=== PATIENT | female | born 1945 | race African-American/Black ===

== ENCOUNTER 2018-12-05 05:55 | Inpatient (IN) | payer OTHER ==
[2018-11-29 13:08] VITALS: BMI 28.3
[~2018-12-05 05:55] MED LIST: CEFAZOLIN 2 GM in DEXTROSE 5%-WATER - 50 ML IVPB ONE; GABAPENTIN 300 MG CAPSULE (FP) PO ONE; PANTOPRAZOLE 40 MG TABLET (FP) PO ONE; TRANEXAMIC ACID 1000 MG/10 ML VIAL IVPUSH ONE; oxyCODONE HCL 10 MG SUSTAINED ACTING TABLET PO ONE
[2018-12-05] MEDS ORDERED: SODIUM CHLORIDE 0.9% P/F 10 ML VIAL IJ ONE (06:35)
[2018-12-05] MEDS ORDERED: BUPIVACAINE LIPOSOME/PF (EXPAREL) 266 MG/20 ML VIAL ONE (06:35)
[2018-12-05] MEDS ORDERED: MIDAZOLAM HCL 2 MG/2 ML SINGLE DOSE VIAL ONE (06:35)
[2018-12-05] MEDS ORDERED: ceFAZolin SODIUM 1 GM VIAL ONE ×2 (07:24→08:01)
[2018-12-05] MEDS ORDERED: VANCOMYCIN 1,000 MG VIAL (RESTRICTED TO ID ONLY) ONE (07:24)
--- NOTE | 2018-12-05 07:46 | HP ---
Admitting History and Physical - Admission Chief Complaint: left knee osteoarthritis x years History of Present Illness: 73 year old female presents in regard to their left knee. Long-standing history of left knee osteoarthritis. Patient complains of pain, limited range of motion , difficulty ambulating, and difficulty with activities of daily living. Patient has failed conservative treatment options including PO medications, injections, activity modification, and exercise programs. At this point, patient would like to proceed with surgical intervention-left total knee arthroplasty. History Source: Patient - Past Medical History Cardiovascular: Yes: HTN, Hyperlipdemia Musculoskeletal: Yes: Osteoarthritis - Past Surgical History Additional Past Surgical History: See written history & physical. - Advance Directives Advance Directives: Yes: Health Care Proxy - Smoking History Smoking history: Never smoked Have you smoked in the past 12 months: No - Alcohol/Substance Use Hx Alcohol Use: Yes (OCCASIONALLY) Home Medications - Allergies Allergies/Adverse Reactions: Allergies Allergy/AdvReac Type Severity Reaction Status Date / Time almond Allergy Severe Difficulty Verified 10/11/17 12:05 Breathing cashew nut Allergy Severe Difficulty Verified 10/11/17 12:05 Breathing nut - unspecified Allergy Severe Difficulty Verified 11/29/18 12:54 Breathing peanut Allergy Severe Itching Verified 10/11/17 12:05 promethazine Allergy Severe Difficulty Verified 11/29/18 12:55 Breathing No Known Drug Allergies Allergy Verified 10/11/17 12:05 - Home Medications Home Medications: Ambulatory Orders Cyanocobalamin [Vitamin B12 -] 1,000 mcg PO DAILY 08/02/17 Mv-Mn/C/Glutamin/Lysin/[id number] [Airborne Lozenge] 1 each MM DAILY 08/02/17 traMADol HCL [Ultram] 50 mg PO Q4H PRN 08/02/17 Ascorbate Calcium [Vitamin C] 2 tab PO DAILY 10/11/17 Aspirin Coated [Ecotrin -] 81 mg PO DAILY 10/11/17 Celecoxib [Celebrex] 200 mg PO DAILY PRN 10/11/17 Losartan/Hydrochlorothiazide [Losartan-Hctz 50-12.5 mg Tab] 1 each PO HS [place]-3 Fatty Acids [[place]-3] 2 cap PO BID 10/11/17 Rosuvastatin Calcium [Crestor] 40 mg PO HS 10/11/17 Amlodipine Besylate 10 mg PO HS 11/29/18 Calcium Carbonate [Calcium] 1 tab PO DAILY 11/29/18 Ferrous Sulfate [Iron] 1 tab PO DAILY 11/29/18 Acetaminophen [Tylenol Arthritis] 650 mg PO Q8H PRN 12/05/18 Review of Systems - Review of Systems Musculoskeletal: reports: Crepitus (left knee), Decreased ROM (left knee), Joint Pain (left knee), Joint Swelling (left knee) Physical Examination Vital Signs: Vital Signs Temperature 98.6 F 12/05/18 06:53 Pulse Rate 86 12/05/18 06:53 Respiratory Rate 16 12/05/18 06:53 Blood Pressure 136/74 12/05/18 06:53 O2 Sat by Pulse Oximetry (%) Constitutional: Yes: Well Nourished, No Distress Eyes: Yes: Conjunctiva Clear HENT: Yes: Atraumatic, Normocephalic Neck: Yes: Supple Cardiovascular: Yes: Regular Rate and Rhythm Respiratory: Yes: Regular Gastrointestinal: Yes: Soft ...Rectal Exam: Yes: Deferred Musculoskeletal: Yes: Joint Stiffness (left knee), Joint Swelling (left knee) Assessment/Plan 73 year old female presents in regard to their left knee. Long-standing history of left knee osteoarthritis. Patient complains of pain, limited range of motion , difficulty ambulating, and difficulty with activities of daily living. Patient has failed conservative treatment options including PO medications, injections, activity modification, and exercise programs. At this point, patient would like to proceed with surgical intervention-left total knee arthroplasty. Pros, cons, risks, benefits, and alternatives of a left total knee arthroplasty MAKOplasty were discussed with the patient at length. Patient confirms their understanding and consents to proceed with a left total knee arthroplasty.
[2018-12-05] MEDS ORDERED: PROPOFOL 20 ML ONE ×3 (08:01)
[2018-12-05] MEDS ORDERED: SUCCINYLCHOLINE CHLORIDE 200 MG/10 ML VIAL ONE (08:01)
[2018-12-05] MEDS ORDERED: ONDANSETRON 4 MG/2 ML VIAL ONE (08:01)
[2018-12-05] MEDS ORDERED: DEXAMETHASONE SOD PHOSPHATE 4 MG/1 ML VIAL ONE (08:01)
[2018-12-05] MEDS ORDERED: ePHEDrine SULFATE 50 MG/1 ML AMPULE ONE (08:02)
[2018-12-05] MEDS ORDERED: BUPIVACAINE HCL/PF 0.5% (5MG/ML) 10 ML VIAL ONE (08:20)
[2018-12-05] MEDS ORDERED: ONDANSETRON 4 MG/2 ML VIAL IVPUSH PRN ×2 (10:12→13:05)
[2018-12-05] MEDS ORDERED: oxyCODONE HCL 5 MG TABLET PO PRN (10:13)
[2018-12-05] MEDS ORDERED: LACTATED RINGERS SOLUTION 1,000 ML IV SCH ×2 (10:15→13:15)
[2018-12-05] MEDS ORDERED: VANCOMYCIN 1,000 MG VIAL (RESTRICTED TO ID ONLY) IVPB ONE (11:50)
--- NOTE | 2018-12-05 12:59 | OP ---
Operative Note - Note: Operative Date: 12/05/18 Pre-Operative Diagnosis: Left knee OA Operation: left TKA Post-Operative Diagnosis: Same as Pre-op Surgeon: Kai Diaz Cma: Elida Mistry Anesthesia: Spinal Estimated Blood Loss (mls): 100
[2018-12-05] MEDS ORDERED: ACETAMINOPHEN 1000 MG/100 ML VIAL (NON FORMULARY) IVPB ONE ×2 (13:00→13:02)
[2018-12-05] MEDS ORDERED: MAG HYDROX/AL HYDROX/SIMETH 30 ML UNIT-DOSE CUP PO PRN (13:05)
[2018-12-05] MEDS ORDERED: traMADol HCL 50 MG TABLET PO ONE (13:05)
[2018-12-05] MEDS ORDERED: MAGNESIUM HYDROX 2400MG/30ML ORAL SUSPENSION 30 ML CUP PO PRN (13:05)
--- NOTE | 2018-12-05 14:20 | OP ---
DATE OF OPERATION: 12/05/2018 PREOPERATIVE DIAGNOSIS: Left knee osteoarthritis. POSTOPERATIVE DIAGNOSIS: Left knee osteoarthritis. PROCEDURE: Left total knee replacement. ATTENDING: Kai Diaz MD FORENSIC ECONOMIST: MARCELO Colon ANESTHESIA: Spinal plus sedation. ESTIMATED BLOOD LOSS: 100 mL COMPLICATIONS: None. DISPOSITION: The patient was transferred to the PACU in stable condition. IMPLANTS USED: [place] Tri[employer] TF size 4 femoral component, [place] [employer] TF size 4 tibial component, 120 x 12-mm stem on femur, 50 x 12-mm stem on tibia, a 16-mm total-stabilized polyethylene component, 32-mm patellar component, three Dall-Miles cables. INDICATIONS: This is a 73-year-old female who presented to the office complaining of severe bilateral knee pain. She is a long-time patient and has been managed for several years. She had extensive arthritis of her knees and significant angular up to 30 degrees valgus deformity which was worsening over time. She had severe pain and ambulatory dysfunction, which was not responding to conservative management, and she ultimately chose to proceed with a total knee replacement. The risks, benefits, and alternatives to the surgery were explained to the patient in great detail and she elected to proceed with the procedure. DESCRIPTION OF PROCEDURE: On the day of surgery, the patient was taken to the operating room and placed on the OR table. Spinal anesthesia was administered by the anesthesiologist. The patient was then positioned supine on the table and all bony prominences were padded. A nonsterile tourniquet was placed on the proximal thigh. The left lower extremity was then prepped and draped in the usual sterile fashion and intravenous antibiotics were given for infection prophylaxis. A surgical time-out was then performed with the team, and the patients identity, procedure, side, availability of implants, and the administration of antibiotics was confirmed. With the knee flexed, a midline incision was made and carried down through the subcutaneous fat to the underlying retinaculum. A medial parapatellar arthrotomy was performed. This was followed by a subperiosteal dissection of the tissue off the proximal-medial tibia. A portion of fat pad was removed from under the patellar tendon and a portion of fat was excised off the distal supracondylar femur. The knee was then flexed further and the anterior horn of the lateral meniscus was released from the midline and the anterior and posterior cruciate ligaments transected. Osteophytes were removed from both the femur and tibia. Severe grade 4 changes were noted diffusely throughout the knee. Particularly noted was a valgus deformity, laxity of the MCL, attenuation of the LCL, erosion of the lateral femoral condyle, and erosion of the lateral tibial plateau leaving a crater of bone loss. Hohmann retractors were then placed around the distal femur. The starting drill was used to enter the intramedullary canal. The starting point had been chosen by checking the radiographs and anatomy. Proper alignment and intramedullary placement was then confirmed by placing the long, narrow johnson into the femur. Next, the distal femoral cutting guide was adjusted to 5 degrees of valgus and pinned to the femur. The bone resection was assessed using an imer wing. An approximately 10 mm distal cut was then made and the cut pieces measured. Once this was complete, the sizing guide was used to determine which size femoral component should be used. The appropriate-sized 4-in-1 cutting block was then placed at the correct amount of external rotation and the imer wing was used to assess that there would be no notching of the anterior cortex of the femur. Once this was done, Hohmann retractors were used to protect the collateral ligaments and all appropriate bone cuts were made. We elected to proceed using revision components, so that stems could be placed for extra support, due to the anticipated ligament balance problems from her severe valgus deformity. We wanted the option to use a constrained polyethylene insert. Attention was then turned to the tibia. Hohmann retractors were used to translate the tibia anteriorly and protect the collateral ligaments. Medial and lateral menisci were removed. The extramedullary tibial alignment guide was then placed and adjusted for rotation, varus/valgus, and slope. The height of the cutting block was adjusted to the level of the desired bone resection and then pinned in place. The proximal tibia was then cut with a saw and the bone was removed and measured. Once this was completed, trial components were placed and the knee was taken through a full range of motion. Soft tissue balance was assessed in both flexion and extension and still found to be tight laterally. An 11 blade was used to perform a pie-crust release of the LCL, which allowed us to use a thicker polyethylene component and restore more balance to the knee. Because of the extensive release, we opted to ultimately use a constrained polyethylene insert, so stems were placed on the femoral and tibial components, for additional fixation strength. We did note that the anterior cortex of the femur was very thin and translucent when viewed from below and that a crack had developed extending from the cut surface of the intercondylar box cut extending proximally along the anterior cortex of the femur. Therefore, three Dall-Miles cables were placed, both around the crack and proximal to the crack in intact bone, to prevent its propagation. We elected to use a stem on the femur that would bypass this entire area. The knee was then put into extension and the patella was everted. The synovium around the patella was circumscribed with electrocautery. A caliper was used to measure the patellar thickness and a saw was then used to resect the patella at the chondro-osseous junction. The cut surface was then sized and drilled for the appropriate patellar button with care taken to medialize it. A trial patella was then placed and the knee was again taken through a full range of motion. The knee was found to have both good balance and good patellar tracking. All of the components were removed except for the tibial baseplate. The appropriate instrumentation was then used to drill and punch the proximal tibia for the keel of the final component, as well as a short stem. All bony surfaces were then cleaned with pulsatile lavage and dried. Bone cement was then prepared on the back table and the final components were cemented in place in the usual fashion. Extruded cement was removed. The polyethylene trial was placed, the knee was put into extension, and axial pressure was applied for compression while the cement hardened. The patellar button was similarly cemented into place. Once the cement had hardened, the knee was taken through a full range of motion to assess stability, balance, and patellar tracking. This was found to be optimal and the trial polyethylene was exchanged for the appropriately-sized real implant. The wound was then thoroughly irrigated with normal saline. No. 1 Vicryl and number-0 V-Loc 180 barbed sutures were used to close the arthrotomy. No. 1 Vicryl and 2-0 V-Loc 90 sutures were used in the subcutaneous tissues. The skin was closed using both 3-0 V-Loc 90 suture in a running subcuticular fashion and Dermabond skin adhesive. Once this was completed, a sterile Aquacel dressing was applied. A compressive Garcia-type dressing was then applied over the Aquacel. The patient was then awakened and taken to the PACU in stable condition. Singh MAKI/[id number]
[2018-12-05] MEDS: oxyCODONE HCL 5 MG TABLET PO PRN (15:54)
[2018-12-05] MEDS: FERROUS SO4 325 MG TABLET (FP) PO SCH (18:24)
[2018-12-05] MEDS: CEFAZOLIN 2 GM/D5W 2 GM/50 ML ML IVPB SCH (18:47)
[2018-12-05] MEDS ORDERED: DEXAMETHASONE SOD PHOSPHATE 10 MG/1 ML VIAL IVPB ONE (20:00)
[2018-12-05] MEDS: ACETAMINOPHEN 325 MG TABLET (FP) PO SCH (20:38)
[2018-12-05] MEDS: traMADol HCL 50 MG TABLET PO SCH (20:38)
[2018-12-05] MEDS: SENNOSIDES/DOCUSATE COMBO (SENNA PLUS) TABLET (UD) PO SCH (21:55)
[2018-12-05] MEDS: ASCORBIC ACID 500 MG TABLET (FP) PO SCH (21:56)
[2018-12-05] MEDS: oxyCODONE HCL 10 MG SUSTAINED ACTING TABLET PO SCH (21:56)
[2018-12-05] MEDS: LOSARTAN 50MG/HCTZ 12.5MG 1 TAB (FP) PO SCH (21:56)
[2018-12-05] MEDS: GABAPENTIN 300 MG CAPSULE (FP) PO SCH (21:56)
[2018-12-05] MEDS: ROSUVASTATIN CA 40 MG TABLET PO SCH (21:56)
[2018-12-05] MEDS: amLODIPine BESYLATE 10 MG TABLET (FP) PO SCH (21:56)
[2018-12-06] MEDS: traMADol HCL 50 MG TABLET PO SCH ×4 (01:13→19:33)
[2018-12-06] MEDS: ACETAMINOPHEN 325 MG TABLET (FP) PO SCH ×4 (01:14→19:33)
[2018-12-06] MEDS: CEFAZOLIN 2 GM/D5W 2 GM/50 ML ML IVPB SCH (01:15)
[2018-12-06 07:42] LABS: HEMATOCRIT 40.1 % (32.4-45.2); HEMOGLOBIN 13.3 GM/dl (10.7-15.3); MCH 30.5 pg (25.7-33.7); MCHC 33.2 g/dl (32.0-36.0); MEAN CELL VOLUME 91.8 fl (80-96); MEAN PLT VOLUME 7.9 fl (7.5-11.1); PLATELET COUNT 180 K/MM3 (134-434); RBC 4.36 M/mm3 (3.60-5.2); RDW 12.6 % (11.6-15.6)
[2018-12-06 07:43] LABS: CREATININE 0.8 mg/dl (0.55-1.3); POTASSIUM 3.9 mmol/L (3.5-5.1)
--- NOTE | 2018-12-06 08:54 | PN ---
Progress Note (short form) - Note Progress Note: ANESTHESIA POSTOP 73 yo female POD#1 s/p TKA, spinal and nerve block Patient sitting in chair talking on phone. No complaints. Reports some pain. Mostly when moving. VSS, Afebrile Pt doing well. Continue current care. Encouraged IS and participation in PT. No anesthetic complications
[2018-12-06] MEDS: oxyCODONE HCL 10 MG SUSTAINED ACTING TABLET PO SCH ×2 (09:47→22:09)
[2018-12-06] MEDS: APIXABAN 2.5 MG TABLET PO SCH ×2 (09:48→22:09)
[2018-12-06] MEDS: MULTIVITAMINS (DAILY MVI) TABLET (FP) PO SCH (09:48)
[2018-12-06] MEDS: PANTOPRAZOLE 40 MG TABLET (FP) PO SCH (09:48)
[2018-12-06] MEDS: ASCORBIC ACID 500 MG TABLET (FP) PO SCH ×2 (09:49→22:09)
[2018-12-06] MEDS: GABAPENTIN 300 MG CAPSULE (FP) PO SCH ×2 (09:49→22:10)
[2018-12-06] MEDS: FERROUS SO4 325 MG TABLET (FP) PO SCH ×2 (09:49→17:30)
[2018-12-06] MEDS: SENNOSIDES/DOCUSATE COMBO (SENNA PLUS) TABLET (UD) PO SCH ×2 (09:49→22:10)
[2018-12-06] MEDS: oxyCODONE HCL 5 MG TABLET PO PRN ×2 (13:16→19:33)
[2018-12-06] MEDS: ROSUVASTATIN CA 40 MG TABLET PO SCH (22:09)
[2018-12-06] MEDS: amLODIPine BESYLATE 10 MG TABLET (FP) PO SCH (22:09)
[2018-12-06] MEDS: LOSARTAN 50MG/HCTZ 12.5MG 1 TAB (FP) PO SCH (22:09)
--- NOTE | 2018-12-07 00:55 | PN ---
Progress Note (short form) - Note Progress Note: Pt seen and examined. Doing well. AVSS Selected Entries 12/06/18 12/06/18 19:39 19:51 Temperature 98.7 F Pulse Rate 84 Respiratory 18 Rate Blood Pressure 110/84 O2 Sat by Pulse 100 Oximetry (%) Laboratory Tests 12/06/18 12/06/18 07:14 07:14 WBC 7.0 Hgb 13.3 Hct 40.1 Plt Count 180 Sodium 137 Potassium 3.9 Chloride 105 Carbon Dioxide 22 Anion Gap 10 BUN 12 Creatinine 0.8 Est GFR (CKD-EPI)AfAm 84.18 Est GFR (CKD-EPI)NonAf 72.63 Random Glucose 192 H Calcium 9.0 Gen: NAD LLE: c/d/i, NVID A/P 73yo female POD#1 s/p L TKA PT/OOB - WBAT LLE D/C home in AM
--- NOTE | 2018-12-07 01:01 | DS ---
Physical Examination Vital Signs: Vital Signs Temperature 98.7 F 12/06/18 19:39 Pulse Rate 84 12/06/18 19:39 Respiratory Rate 18 12/06/18 19:51 Blood Pressure 110/84 12/06/18 19:39 O2 Sat by Pulse Oximetry (%) 100 12/06/18 19:51 Labs: CBC, BMP 12/06/18 07:14 12/06/18 07:14 Discharge Summary Reason For Visit: LEFT KNEE OSTEOARTHRITIS Current Active Problems Osteoarthritis of left knee (Acute) Procedures: Principal: left TKA Hospital Course: Admitted for elective surgery. Procedure performed without complications. Pt received postoperative antibiotic prophylaxis and DVT ppx. Ambulated with physical therapy. Stable for discharge home with outpatient followup. Condition: Stable - Instructions Diet, Activity, Other Instructions: Dr. Diaz - Knee Replacement Instructions Keep the Aquacel dressing on until removed by Dr. Diaz in 10-14 days - it is antibacterial and waterproof and you can shower with it on. Call the office for a follow-up appointment with Dr. Diaz in 10-14 days. Take ELIQUIS 2.5mg twice daily for 35 days to prevent blood clots in your legs. Take one Pantoprazole 40mg daily for 6 weeks to protect against heartburn and ulcers. Take Cephalexin (antibiotic) 3x/day for 10 days to help prevent skin infection. Take a multivitamin, stool softener, and extra Vitamin C supplement daily. For pain: *Mild pain (1-3/10): Take 1 Tramadol tablet every 4 hours as needed. Moderate pain (4-6/10): Take 1 Tramadol tablet and 1 Percocet tablet every 4 hours as needed. Severe pain (7-10/10): Take 1 Tramadol tablet and 2 Percocet tablets every 4 hours as needed. Activity: You can put as much weight on the operative leg as you want. Right after you get home, there will be a physical therapist coming to your house to help you walk around and bend/straighten your knee. After your follow-up appointment, you will be sent for more intensive outpatient physical therapy which will include machines and equipment that the home therapist cannot bring to your house. Always use a walker or cane for balance and to prevent falls. Expect to see redness/warmth/swelling/bruising from the operative knee all the way down to your toes. Wear the compression stocking on the operative side during the day to minimize how much swelling there is in your foot/ankle. Don't wear the stocking at night. You don't have to wear a stocking on the other side. Disposition: VNS/HOME HEALTH CARE - Home Medications Comprehensive Discharge Medication List: Ambulatory Orders Cyanocobalamin [Vitamin B12 -] 1,000 mcg PO DAILY 08/02/17 Mv-Mn/C/Glutamin/Lysin/[id number] [Airborne Lozenge] 1 each MM DAILY 08/02/17 Ascorbate Calcium [Vitamin C] 2 tab PO DAILY 10/11/17 Losartan/Hydrochlorothiazide [Losartan-Hctz 50-12.5 mg Tab] 1 each PO HS [place]-3 Fatty Acids [[place]-3] 2 cap PO BID 10/11/17 Rosuvastatin Calcium [Crestor] 40 mg PO HS 10/11/17 Amlodipine Besylate 10 mg PO HS 11/29/18 Calcium Carbonate [Calcium] 1 tab PO DAILY 11/29/18 Ferrous Sulfate [Iron] 1 tab PO DAILY 11/29/18 Apixaban [Eliquis -] 2.5 mg PO BID #67 tablet 12/07/18 Ascorbic Acid [Vitamin C -] 500 mg PO BID tablet 12/07/18 Cephalexin Monohydrate [Keflex -] 500 mg PO TID #30 capsule 12/07/18 Multivitamins [Multivit ([facility] Formulary)] 1 tab PO DAILY tab 12/07/18 Oxycodone HCl/Acetaminophen [Percocet 5-325 mg Tablet] 1 - 2 tab PO Q4H PRN #60 tablet MDD 10 12/07/18 Pantoprazole Sodium [Protonix -] 40 mg PO DAILY #40 tablet.ec 12/07/18 Sennosides/Docusate Sodium [Pericolace -] 2 tablet PO BID tablet 12/07/18 traMADol HCL [Ultram -] 50 mg PO Q4H PRN #60 tablet MDD 6 12/07/18
[2018-12-07] MEDS: ACETAMINOPHEN 325 MG TABLET (FP) PO SCH ×2 (02:34→09:41)
[2018-12-07] MEDS: traMADol HCL 50 MG TABLET PO SCH ×2 (02:34→09:40)
[2018-12-07 07:09] VITALS: BP 86/45; PULSE 91; TEMP 99.2
[2018-12-07] MEDS: FERROUS SO4 325 MG TABLET (FP) PO SCH (09:38)
[2018-12-07] MEDS: MULTIVITAMINS (DAILY MVI) TABLET (FP) PO SCH (09:39)
[2018-12-07] MEDS: SENNOSIDES/DOCUSATE COMBO (SENNA PLUS) TABLET (UD) PO SCH (09:39)
[2018-12-07] MEDS: PANTOPRAZOLE 40 MG TABLET (FP) PO SCH (09:39)
[2018-12-07] MEDS: GABAPENTIN 300 MG CAPSULE (FP) PO SCH (09:39)
[2018-12-07] MEDS: ASCORBIC ACID 500 MG TABLET (FP) PO SCH (09:39)
[2018-12-07] MEDS: oxyCODONE HCL 10 MG SUSTAINED ACTING TABLET PO SCH (09:41)
[2018-12-07] MEDS: APIXABAN 2.5 MG TABLET PO SCH (09:41)
[2018-12-07 09:49] LABS: HEMATOCRIT 36.6 % (32.4-45.2); HEMOGLOBIN 12.2 GM/dL (10.7-15.3); MCH 30.4 pg (25.7-33.7); MCHC 33.3 g/dl (32.0-36.0); MEAN CELL VOLUME 91.3 fl (80-96); MEAN PLT VOLUME 8.3 fl (7.5-11.1); PLATELET COUNT 175 K/MM3 (134-434); RBC 4.01 M/mm3 (3.60-5.2); RDW 13.3 % (11.6-15.6); WHITE BLOOD COUNT 8.7 K/mm3 (4.0-10.0)
--- NOTE | 2018-12-09 17:48 | PATH ---
Surgical Pathology Report Patient Name: BEBO WHITAKER Med. Rec. #: [id number] /Age/Gender: 1945 (Age: 73) / F Account: [id number] Location: [facility] MED-SURG Taken: 12/05/2018 Received: 12/05/2018 Reported: 12/09/2018 Physicians: Kai Diaz M.D. Specimen(s) Received LEFT KNEE BONE Clinical History Left knee osteoarthritis Final Diagnosis BONE, KNEE, LEFT, TOTAL KNEE REPLACEMENT: BONE WITH DEGENERATIVE JOINT DISEASE. Electronically Signed Briana Simpson M.D. Gross Description Received in formalin labeled "left knee bone," is a 12.0 x 10.5 x 1.5 cm aggregate of multiple ferrell-yellow, irregular portions of bone and soft tissue. The tibial plateau measures 8.0 x 5.7 x 1.7 cm. There is a 1.8 cm greatest dimension area of eburnation identified. The remaining articular surfaces are ferrell-yellow and diffusely granular. The underlying trabecular bone is yellow and hard. [employer] Helper sections are submitted in one cassette, following decalcification. /12/06/2018 [facility]12/06/2018
== END 2018-12-07 13:15 | disposition home health service (06) | DRG 302 ==
LOC: FM/S 05:55
PROVIDERS: ADMIT Student in an Organized Health Care Education/Training Program; ATTEND Student in an Organized Health Care Education/Training Program
PROC: 0SRD069 Replacement of Left Knee Joint with Oxidized Zirconium on Polyethylene Synthetic Substitute, Cemented, Open Approach (ICD-10-PCS; principal; 2018-12-05 09:16)
DX: M17.12 Unilateral primary osteoarthritis, left knee (principal); I10 Essential (primary) hypertension; E78.5 Hyperlipidemia, unspecified
CPT/HCPCS: 36415; 73560-TC-LT-FY; 80048; 85027; 88304-TC; 88311-TC; 94760; 97116-GP; 97163-GP; J0131; J1100